=== PATIENT | male | born 1960 | race Caucasian/White ===

== ENCOUNTER → 2019-06-12 | Outpatient (REF) | payer OTHER ==
[2019-06-12 14:38] LABS: APPEARANCE, URINE CLEAR (CLEAR); BACTERIA, URINE AUTO NEGATIVE (NEGATIVE); BILIRUBIN, URINE AUTO NEGATIVE (NEGATIVE); BLOOD, URINE BLOOD NEGATIVE (NEGATIVE); COLOR, URINE YELLOW (YELLOW); GLUCOSE, URINE (UA) AUTO NEGATIVE (NEGATIVE); KETONE, URINE AUTO NEGATIVE (NEGATIVE); LEUKOCYTE ESTERASE, URINE AUTO NEGATIVE (NEGATIVE); NITRITE, URINE AUTO NEGATIVE (NEGATIVE); PROTEIN, URINE AUTO NEGATIVE (NEGATIVE); RBC, URINE AUTO 1 /HPF (0-3); SPECIFIC GRAVITY URINE AUTO 1.018 (1.002-1.035); SQUAMOUS EPITHELIAL CELL UR AU 0 /HPF (0-6); UROBILINOGEN, URINE AUTO 0.2 mg/dL (0.0-2.0); WBC, URINE AUTO 0 /HPF (0-3)
== END ==
LOC: M SMT 13:00
PROVIDERS: ATTEND Nurse Practitioner Women's Health
DX: R97.20 Elevated prostate specific antigen [PSA] (principal); N40.0 Benign prostatic hyperplasia without lower urinary tract symptoms
CPT/HCPCS: 81001; 87086; G0463

== ENCOUNTER → 2019-09-18 | Outpatient (REF) | payer OTHER | LOC: M LABSMT 09:55 | PROVIDERS: ATTEND Nurse Practitioner Women's Health | DX: R97.20 Elevated prostate specific antigen [PSA] (principal) | CPT/HCPCS: 36415; 84153; G0463 ==

== ENCOUNTER → 2020-09-08 | Outpatient (CLI) | payer OTHER ==
--- NOTE | 2020-09-08 16:41 | REP ---
INDICATION: RT SHOULDER PAIN W/ IMPINGMENT SYNDROME. COMPARISON: None. TECHNIQUE: Coronal oblique T1, T2 fat sat, sagittal oblique T2 fat sat, axial T2 fat sat, gradient echo. FINDINGS: Rotator cuff: There is a partial undersurface tear of the supraspinatus tendon. Acromioclavicular joint: There are moderate hypertrophic degenerative changes of the acromioclavicular joint. Acromion: Type 2 Biceps Tendon: In bicipital groove, with mild surrounding fluid. Hill Sach's deformity: None. Deltoid muscle: No abnormal signal. Biceps labral complex: Grossly intact. Labrum: Grossly intact. Cartilage: No defects. Bone marrow: There are a few subcentimeter subcortical cysts in the superolateral humeral head. Joint fluid: No effusion. IMPRESSION: Partial undersurface tear supraspinatus tendon. Moderate hypertrophic degenerative changes acromioclavicular joint with a type 2 acromion. No gross labral tear. <Electronically signed by Grayson Engle > 09/08/20 [id number]
== END ==
LOC: M PLARAD 15:02
PROVIDERS: ATTEND Physician Assistant Surgical
DX: M75.111 Incomplete rotator cuff tear or rupture of right shoulder, not specified as traumatic (principal)

== ENCOUNTER → 2021-01-22 | Outpatient (CLI) | payer OTHER ==
[2021-01-22 18:27] LABS: CALCIUM LEVEL 8.9 MG/DL (8.8-10.2); CREATININE FOR GFR 1.34 MG/DL (0.70-1.30); GLOMERULAR FILTRATION RATE 57.7 (>49); POTASSIUM SERUM 3.9 MEQ/L (3.5-5.1)
== END ==
LOC: M PLALAB 15:34
PROVIDERS: ATTEND Nurse Practitioner Family
DX: R97.20 Elevated prostate specific antigen [PSA] (principal); N40.0 Benign prostatic hyperplasia without lower urinary tract symptoms

== ENCOUNTER → 2021-01-28 | Outpatient (CLI) | payer OTHER ==
[~2021-01-28] MED LIST: PROHANCE 279.3MG/ML 15ML VIAL As Ordered ONE; PROHANCE 279.3MG/ML 5ML VIAL As Ordered ONE
--- NOTE | 2021-01-29 08:38 | REP ---
INDICATION: ELEVATED PSA, BPH. COMPARISON: No comparison imaging available. TECHNIQUE: Using a phased array surface coil, small iffds-pk-tstu imaging was acquired using T2 weighted scans in the axial, coronal, and sagittal imaging planes. Small efrll-za-nkel diffusion-weighted sequences are acquired. Small qpdtf-od-zvvc axial T1 weighted scans are acquired dynamically before and after the intravenous administration of 8 mL of ProHance. Imaging is reviewed using the [employer] computer-aided detection system. FINDINGS: There is nodular enlargement of the central prostate gland consistent with BPH. There is no evidence of pelvic lymphadenopathy or skeletal metastatic disease. Glandular dimensions are 4.7 x 3.4 x 4.1 cm, calculated prostate glandular volume 33.9 mL. There is a cystic nodule at the base of the prostate gland elevating the bladder this measures 9 mm in greatest diameter. Seminal vesicles are unremarkable. The bladder [place] are slightly trabeculated. There is no suspicious lesion on T2 weighted scans in the peripheral zone. Three focal areas of T2 hypointensity with type 3 gadolinium enhancement kinetics and variable appearance on diffusion-weighted images are identified. These are outlined and transmitted for consideration of MR/ultrasound fusion directed needle biopsy. The 1st region of interest is in the left apical anterior transition zone measuring 1.0 x 0.7 x 1.4 cm, volume 0.69 mL. The 2nd region of interest is in the right mid posterior transition zone measuring 1.3 x 0.8 x 1.4 cm, 0.7 and 1 is mL. The 3rd region of interest is in the left base posterior transition zone measuring 1.4 x 0.7 x 1.4 cm, 0.53 mL. IMPRESSION: Multiparametric prostate MRI study. Three regions of interest identified and submitted for consideration of fusion directed biopsy. <Electronically signed by Lanre Duque > 01/29/21 [id number]
== END ==
LOC: M RAD 17:42
PROVIDERS: ATTEND Nurse Practitioner Women's Health
DX: R97.20 Elevated prostate specific antigen [PSA] (principal); N40.0 Benign prostatic hyperplasia without lower urinary tract symptoms; N40.2 Nodular prostate without lower urinary tract symptoms
CPT/HCPCS: 72197; A9576

== ENCOUNTER → 2021-02-02 | Outpatient (REF) | payer OTHER | LOC: M SMT PRO 12:48 | PROVIDERS: ATTEND Urology | DX: R97.20 Elevated prostate specific antigen [PSA] (principal) | CPT/HCPCS: 55700; 76942; G0416 ==

== ENCOUNTER 2022-04-27 15:36 | Observation (INO) | payer OTHER ==
[~2022-04-27] VITALS: Ht 177.8 cm; Wt 81.8 kg
[2022-04-27] MEDS ORDERED: ROSU40TA4 PO (15:50)
[2022-04-27] MEDS ORDERED: FINA5TAB2 PO (15:50)
[2022-04-27] MEDS ORDERED: ATEN50TA2 PO (15:50)
[2022-04-27] MEDS ORDERED: LOSA100T45 PO (15:50)
[2022-04-27] MEDS ORDERED: JARD1TAB3 PO (15:50)
[2022-04-27] MEDS ORDERED: ISOVUE-370 76% 100ML VIAL As Ordered ONE (16:38)
[2022-04-27 17:59] LABS: BASO % 0.7 % (0.0-1.0); EOS # 0.1 10^3/uL (0.0-0.5); EOS % 2.2 % (0.0-3.0); HEMOGLOBIN 12.3 g/dl (13.5-17.5); LYMPH # 1.1 10^3/uL (1.5-5.0); MEAN CORPUSCULAR HEMOGLOBIN 23.5 pg (27.0-33.0); MEAN CORPUSCULAR HGB CONC 30.8 g/dl (32.0-36.5); MEAN CORPUSCULAR VOLUME 76.3 fl (80.0-96.0); MONO # 0.4 10^3/uL (0.0-0.8); MONO % 9.4 % (2.0-8.0); NEUTROPHILS % 64.5 % (36.0-66.0); PLATELET COUNT, AUTOMATED 212 10^3/uL (150-450); RED BLOOD COUNT 5.24 10^6/uL (4.30-6.10); WHITE BLOOD COUNT 4.6 10^3/uL (4.0-10.0)
[2022-04-27 18:12] LABS: INR 0.98; PROTHROMBIN TIME 13.2 SECONDS (12.5-14.5)
[2022-04-27 18:14] LABS: PARTIAL THROMBOPLASTIN TIME 64.3 SECONDS (24.8-34.2)
[2022-04-27 18:32] LABS: RSV AMPLIFICATION NEGATIVE (NEGATIVE)
[2022-04-27 18:36] LABS: CK-MB VALUE MASS 4.1 NG/ML (<3.6)
[2022-04-27 18:41] LABS: ALBUMIN 3.6 G/DL (3.2-5.2); BILIRUBIN,DIRECT 0.2 MG/DL (<0.4); BILIRUBIN,TOTAL 0.6 MG/DL (0.3-1.2); CHOLESTEROL RISK RATIO 2.04 (<5); HDL CHOLESTEROL 50.4 MG/DL (>40); LDL CHOLESTEROL 35.2 MG/DL (<100); TOTAL PROTEIN 6.4 G/DL (5.7-8.2)
[2022-04-27 18:43] LABS: MB/CK RELATIVE INDEX 0.68 (< OR =4)
[2022-04-27] MEDS ORDERED: TETRACAINE 0.5% OPHTH SOLN 4ML OU ONE (20:05)
[2022-04-27 20:40] LABS: ERYTHROCYTE SEDIMENTATION RATE 7 mm/hr (0-20)
[2022-04-27] MEDS ORDERED: ACETAMINOPHEN TAB 650MG DOSE (2X325MG) PO PRN (20:55)
[2022-04-27] MEDS ORDERED: INSULIN LISPRO (NovoLOG) PER UNIT SC SCH (21:00)
[2022-04-27] MEDS ORDERED: GLUCOSE 4GM CHEW TABLET PO PRN (21:15)
[2022-04-27] MEDS ORDERED: GLUCAGON INJ 1MG VIAL SC PRN (21:15)
[2022-04-27] MEDS ORDERED: DEXTROSE 50% 50ML SYRINGE IV PRN (21:15)
[2022-04-27 21:20] VITALS: BP 163/83
[2022-04-27] MEDS: COSOPT OCUMETER PLUS 10ML (DORZOLAMIDE/TIMOLOL) OS SCH (21:20)
[2022-04-27] MEDS ORDERED: HOME MED LIST COMPLETE! XX SCH (21:30)
[2022-04-28 06:00] VITALS: BP 134/76
[2022-04-28] MEDS ORDERED: INSULIN LISPRO (NovoLOG) PER UNIT SC SCH (07:30)
[2022-04-28] MEDS: COSOPT OCUMETER PLUS 10ML (DORZOLAMIDE/TIMOLOL) OS SCH (09:52)
[2022-04-28] MEDS ORDERED: DORZ2SOL5 OS (09:59)
== END 2022-04-28 11:15 | disposition home or self-care (01) ==
LOC: M ED 15:36 → M ED INP 15:37
PROVIDERS: ADMIT Internal Medicine; ATTEND Internal Medicine
DX: H40.212 Acute angle-closure glaucoma, left eye (principal); R51.9 Headache, unspecified; H57.12 Ocular pain, left eye; I10 Essential (primary) hypertension; E11.9 Type 2 diabetes mellitus without complications; R74.8 Abnormal levels of other serum enzymes; D64.9 Anemia, unspecified; R29.700 NIHSS score 0; Z79.899 Other long term (current) drug therapy; Z79.84 Long term (current) use of oral hypoglycemic drugs; Z82.3 Family history of stroke
CPT/HCPCS: 36415; 70450; 70496; 70498; 70551; 71045; 80047; 80061; 80076; 82550; 82553; 84484; 85025; 85610; 85652; 85730; 87631; 93005; 94760; 99285; G0378; Q9967

== ENCOUNTER → 2023-03-14 | Outpatient (CLI) | payer OTHER ==
[~2023-03-14] MED LIST changes: +ATEN50TA2 PO; +DORZ2SOL5 OS; +FINA5TAB2 PO; +JARD1TAB3 PO; +LOSA100T46 PO; -PROHANCE 279.3MG/ML 15ML VIAL As Ordered ONE; -PROHANCE 279.3MG/ML 5ML VIAL As Ordered ONE; +ROSU40TA4 PO
== END ==
LOC: M PLAIMG 08:54
PROVIDERS: ATTEND Internal Medicine
DX: M25.551 Pain in right hip (principal); M16.11 Unilateral primary osteoarthritis, right hip

== ENCOUNTER → 2023-06-15 | Outpatient (CLI) | payer OTHER ==
[~2023-06-15] MED LIST changes: +ISOVUE-300 61% 100ML VIAL As Ordered ONE; +LIDOCAINE 1% MDV 20ML VIAL As Ordered ONE; +methylPREDNISolone SUSP 40MG/ML 1ML VIAL (DEPO MEDROL) As Ordered ONE
== END ==
LOC: M RAD 14:51
PROVIDERS: ATTEND Orthopaedic Surgery
DX: M16.0 Bilateral primary osteoarthritis of hip (principal)
CPT/HCPCS: 20610; 77002; J0665; J1030; Q9967

== ENCOUNTER → 2023-07-13 | Outpatient (CLI) | payer OTHER ==
[~2023-07-13] MED LIST changes: -ISOVUE-300 61% 100ML VIAL As Ordered ONE; -LIDOCAINE 1% MDV 20ML VIAL As Ordered ONE; -methylPREDNISolone SUSP 40MG/ML 1ML VIAL (DEPO MEDROL) As Ordered ONE
== END ==
LOC: M SOG 15:14
PROVIDERS: ATTEND Orthopaedic Surgery
DX: M25.551 Pain in right hip (principal); M16.11 Unilateral primary osteoarthritis, right hip

== ENCOUNTER 2023-08-14 13:04 | Emergency (ER) | payer OTHER ==
[~2023-08-14] VITALS: Ht 177.8 cm; Wt 81.8 kg
[2023-08-14 13:44] LABS: BASO % 0.5 % (0.0-1.0); EOS # 0.1 10^3/uL (0.0-0.5); EOS % 2.9 % (0.0-3.0); HEMOGLOBIN 13.1 g/dl (13.5-17.5); LYMPH % 25.7 % (24.0-44.0); MEAN CORPUSCULAR HEMOGLOBIN 24.1 pg (27.0-33.0); MEAN CORPUSCULAR HGB CONC 31.2 g/dl (32.0-36.5); MEAN CORPUSCULAR VOLUME 77.3 fl (80.0-96.0); MONO # 0.3 10^3/uL (0.0-0.8); MONO % 7.2 % (2.0-8.0); NEUTROPHILS # 2.4 10^3/uL (1.5-8.5); NEUTROPHILS % 63.4 % (36.0-66.0); PLATELET COUNT, AUTOMATED 170 10^3/uL (150-450); RED BLOOD COUNT 5.43 10^6/uL (4.30-6.10); WHITE BLOOD COUNT 3.8 10^3/uL (4.0-10.0)
[2023-08-14 14:09] LABS: BLOOD UREA NITROGEN 19 MG/DL (9-23); CALCIUM LEVEL 8.4 MG/DL (8.3-10.6); CARBON DIOXIDE LEVEL 31 MMOL/L (20-31); CHLORIDE LEVEL 105 MMOL/L (98-107); CK-MB VALUE MASS 5.7 NG/ML (<3.6); CPK CREATINE PHOSPHOKINASE 615 U/L (46-171); CREATININE FOR GFR 1.19 MG/DL (0.70-1.30); GLOMERULAR FILTRATION RATE > 60.0 (>49); GLUCOSE, FASTING 87 MG/DL (74-106); MB/CK RELATIVE INDEX 0.92 (< OR =4); POTASSIUM SERUM 3.9 MMOL/L (3.5-5.1); SODIUM LEVEL 139 MMOL/L (136-145)
[2023-08-14] MEDS: ASPIRIN 81MG CHEW TABLET PO ONE (14:37)
[2023-08-14 14:38] VITALS: BP 162/87
[2023-08-14] MEDS: NITROGLYCERIN 2% OINT 1 GM *U/D* PKT TOP ONE (14:38)
[2023-08-14 14:57] LABS: ALBUMIN 3.6 G/DL (3.2-5.2); ALKALINE PHOSPHATASE 68 U/L (46-116); ALT/SGPT 34 U/L (7.0-40); AST/SGOT 19 U/L (<34); BILIRUBIN,DIRECT 0.3 MG/DL (<0.4); BILIRUBIN,TOTAL 0.7 MG/DL (0.3-1.2); TOTAL PROTEIN 6.3 G/DL (5.7-8.2)
[2023-08-14 15:31] LABS: CK-MB VALUE MASS 5.4 NG/ML (<3.6)
[2023-08-14 15:32] LABS: MB/CK RELATIVE INDEX 0.87 (< OR =4)
[2023-08-14] MEDS ORDERED: ASPI81TA26 PO (18:16)
[2023-08-14] MEDS ORDERED: ISOS1TAB36 PO (18:16)
[2023-08-14 18:34] VITALS: BP 155/82; TEMP 97.3; O2SAT 99
== END 2023-08-14 18:58 | disposition home or self-care (01) ==
LOC: EDBD 13:04 → M ED 13:04
DX: I20.9 Angina pectoris, unspecified (principal); I10 Essential (primary) hypertension; Z79.02 Long term (current) use of antithrombotics/antiplatelets; Z79.82 Long term (current) use of aspirin; Z79.811 Long term (current) use of aromatase inhibitors; Z79.899 Other long term (current) drug therapy

== ENCOUNTER → 2024-11-25 | Outpatient (CLI) | payer OTHER ==
[~2024-11-25] MED LIST changes: +ASPI81TA26 PO; +ISOS1TAB36 PO; -ROSU40TA4 PO; +ROSU40TA81 PO
== END ==
LOC: M PLAIMG 07:10
PROVIDERS: ATTEND Physician Assistant
DX: R06.02 Shortness of breath (principal); R93.2 Abnormal findings on diagnostic imaging of liver and biliary tract

== ENCOUNTER → 2024-11-28 | Outpatient (CLI) | payer OTHER ==
[~2024-11-28] MED LIST changes: +METHACHOLINE KIT (6 VIAL.NEB PREMIX) INH ONE
== END ==
LOC: M CARPUL 08:16
PROVIDERS: ATTEND Physician Assistant
DX: R06.02 Shortness of breath (principal)
CPT/HCPCS: 94070; 95070; J7674

== ENCOUNTER → 2025-03-12 | Outpatient (REF) | payer OTHER ==
[~2025-03-12] MED LIST changes: +FLUT1BLS3 IH; +HYDR12.55 PO; +MAGN400T2 PO; -METHACHOLINE KIT (6 VIAL.NEB PREMIX) INH ONE; +SILD100T PO; +ZINC50CA4 PO
[2025-03-12 13:52] LABS: BASO # 0.0 10^3/uL (0.0-0.2); BASO % 0.3 % (0.0-1.0); EOS # 0.1 10^3/uL (0.0-0.5); EOS % 2.4 % (0.0-3.0); EOSINOPHIL,TOTAL CALCULATED 100 mm3 (0-740); LYMPH # 0.9 10^3/uL (1.5-5.0); LYMPH % 26.0 % (24.0-44.0); MONO # 0.2 10^3/uL (0.0-0.8); MONO % 6.6 % (2.0-8.0); NEUTROPHILS # 2.1 10^3/uL (1.5-8.5); NEUTROPHILS % 64.4 % (36.0-66.0); PLATELET COUNT, AUTOMATED 200 10^3/uL (150-450)
[2025-03-13 15:47] LABS: BERMUDA GRASS IGE < 0.10 kU/L (<0.10); BIRCH IGE < 0.10 kU/L (<0.10); COMMON RAGWEED SHORT IGE < 0.10 kU/L (<0.10); D001 IGE D PTERONYSSINUS < 0.10 kU/L (<0.10); D002-IGE D FARINAE < 0.10 kU/L (<0.10); E001-IGE CAT DANDER < 0.10 kU/L (<0.10); E005-IGE DOG DANDER < 0.10 kU/L (<0.10); ELM IGE < 0.10 kU/L (<0.10); I006 IGE COCKROACH < 0.10 kU/L (<0.10); IMMUNOGLOBULIN E FOR ALLERGENS 35 kU/L (<OR=114); M006 IGE ALTERNIA ALTERNATA < 0.10 kU/L (<0.10); M1-PENICILLIUM NOTATUM < 0.10 kU/L (<0.10); MOUSE URINE IGE < 0.10 kU/L (<0.10); MUGWORT IGE < 0.10 kU/L (<0.10); OAK IGE < 0.10 kU/L (<0.10); ROUGH PIGWEED IGE < 0.10 kU/L (<0.10); SHEEP SORREL IGE < 0.10 kU/L (<0.10); T001-IGE MAPLE BOX ELDER < 0.10 kU/L (<0.10); T006-IGE MOUNTAIN CEDAR < 0.10 kU/L (<0.10); T014 COTTONWOOD IGE < 0.10 kU/L (<0.10); TIMOTHY GRASS IGE 3.97 kU/L (<0.10); WALNUT TREE IGE < 0.10 kU/L (<0.10); WHITE ASH IGE < 0.10 kU/L (<0.10); WHITE MULBERRY IGE < 0.10 kU/L (<0.10)
== END ==
LOC: M LAB REF 13:05
PROVIDERS: ATTEND Physician Assistant
DX: J45.40 Moderate persistent asthma, uncomplicated (principal)

== ENCOUNTER → 2025-03-18 | Outpatient (CLI) | payer OTHER | LOC: M PLARAD 11:13 | PROVIDERS: ATTEND Student in an Organized Health Care Education/Training Program | DX: D47.2 Monoclonal gammopathy (principal); C00-D49 Neoplasms | CPT/HCPCS: 78816; A9552 ==

== ENCOUNTER → 2025-04-13 | Outpatient (CLI) | payer OTHER, MEDICARE | LOC: M SLEEP 20:00 | PROVIDERS: ATTEND Registered Nurse | DX: G47.33 Obstructive sleep apnea (adult) (pediatric) (principal) ==

== ENCOUNTER → 2025-04-21 | Outpatient (REF) | payer MEDICARE, OTHER ==
[2025-04-21 11:22] LABS: URINE TOTAL PROTEIN < 6.0 MG/DL (0-14)
[2025-04-23 14:37] LABS: PROTEIN CREAT 24H RATIO 51 mg/g creat (<100); T PROTEIN CREAT 24HR RATIO 0.051 (<0.100); UPEP 24H CREATININE 1.92 g/24 h (0.50-2.15)
[2025-04-24 07:28] LABS: FREE KAPPA LIGHT CHAINS URINE 5.25 mg/L (<=32.90); FREE LAMBDA LIGHT CHAINS URINE 1.93 mg/L (<=3.79); KAPPA/LAMBDA RATIO URINE 2.72 (<=8.69)
[2025-04-25 07:17] LABS: Urine Albumin % 41 %; Urine Alpha-1-Globulin % 6 %; Urine Alpha-2-Globulin % 18 %; Urine Beta Globulin % 18 %; Urine Gamma Globulin % 18 %
== END ==
LOC: M LAB REF 08:46
PROVIDERS: ATTEND Student in an Organized Health Care Education/Training Program
DX: D47.2 Monoclonal gammopathy (principal)